=== PATIENT | female | born 1990 | race Caucasian/White ===

== ENCOUNTER 2024-08-24 22:56 | Emergency (ER) | payer BC, SELFPAY ==
--- OUTSIDE RECORDS SUMMARY | 2024-08-24 22:58 | XMS_ITS | Encounter Summary ---
Author Organization [facility] Address [address] [place] [address]. [place] [address] Care Team Providers Care Production Utility Worker Name Role Phone Naz Aguayo MD Unavailable Demario eKe MD Unavailable Tess Williamson MD Primary Care Provider [phone] Demario Kee MD Unavailable Encounter Details Date Type Department Care Team (Late st Contact Info) Description 08/23/2023 MyC Medical Advice Gina HERNANDEZ Epilepsy Care [address] [facility], [address] [place] [address] Anson Renae RN Social History Tobacco Use Types Packs/Day Years Used Date Smoking Tobacco: Former Cigarettes Smokeless Tobacco: Former Quit: 11/2015 Alcohol Use Standard Drinks/Week Comments Not Currently 0 (1 standard drink = 0.6 oz pur e alcohol) occ PHQ-2 Answer Date Recorded PHQ-2 Score 0 12/14/2022 Home Depression Scale Answer Date Recorded Home Depression Score 0 06/13/2020 Last EPDS Self Harm Result Not on file 06/13 Adolescent Education Answer Date Record ed Getting School Help Needed Not on file 11/20 Comments No Sex and Gender Information Value Date Recorded Sex Assigned at Not on file Legal Sex Female 3:38 AM WEED THINNER Gender Identity Not on file Sexual Orientation Not on file documented as of this encounter Plan of Treatment Not on file documented as of this encounter Visit Diagnoses Not on filedocumented in this encounter Additional Health Concerns Assessment Noted Time PHQ-9 Depression Total Score: 3 12/15/19 23 1:19 PM WEED THINNER documented as of this encounter Care Teams Production Utility Worker Relationship Specialty Start Date End Date Tess Williamson MD [facility] [address] [place] [address] PCP - General Family Practice 08/15/19 Naz Aguayo MD [address] [place], [place] [address] Orthopedics 02/26/18 Demario Kee MD [address] [place], [place] [id number] Neurology 02/26/18 Demario Kee MD [address] [facility] [address] [place], [place] [address] Assigned Neuroscience Provider 11/28/19 documented as of this encounter
--- OUTSIDE RECORDS SUMMARY | 2024-08-24 22:58 | XMS_ITS | Encounter Summary ---
Author Organization [facility] Address [address], [place] [address] Care Team Providers Care Yarn Bleaching Machine Operator Name Role Phone Tess Williamson MD Primary Care Provider Reason for Visit * Reason Comments Refill norethindrone, contr aceptive, (MICRONOR) 0.35 MG tablet [Pharmacy Med Name: NORETHINDRONE 0.35MG TABLETS 28S] Encounter Details Date Type Department Care Team (Late st Contact Info) Description 08/02/2024 Refill [facility]SENIOR PRODUCT DESIGNER [address] [address] [place] [address] [address] Refill (norethindrone, contraceptive, (MICRONOR) 0.35 MG tablet [Pharmacy Med Name: NORETHINDRONE 0.35MG TABLETS 28S]) Social History Tobacco Use Types Packs/Day Years Used Date Smoking Tobacco: Former Cigarettes Smokeless Tobacco: Never Alcohol Use Standard Drinks/Week Comments Not Currently 0 (1 standard drink = 0.6 oz pur e alcohol) occasional PHQ-2 Answer Date Recorded PHQ-2 Score 0 02/12/2019 Depression Answer Date Recor ded Last EPDS Total Score 1 03/15/2024 Last EPDS Self Harm Result Not on file 03/15 Comments No Sex and Gender Information Value Date Recorded Sex Assigned at Not on file Legal Sex Female 5:08 AM CDT Gender Identity Not on file Sexual Orientation Not on file Occupation Industry Job Start Date Job End Date [employer] Not on file Not on file Not on file documented as of this encounter Nursing Notes * Sonam Starks MD - 08/07/2024 4:26 PM CDT Patient needs an appointment. Medication not improve. Thanks Dr. Starks * Madelyn Zapata RN - 08/07/2024 3:59 PM CDT Further assistance needed to complete refill request Reason: Pt overdue for qualifying visit. Next Steps: Review pended order for accuracy. Sign. Close encounter. Requested Prescriptions Pending Prescriptions Disp Refills norethindrone, contraceptive, (MICRONOR) 0.35 MG tablet [Pharmacy Med Name: NORETHINDRONE 0.35MG TABLETS 28S] 90 Tablet 0 Sig: TAKE 1 TABLET(0.35 MG) BY MOUTH DAILY LQV 03/16/22. Detailed msg left that she is overdue for a visit. Number given for scheduling. * Radha Matthews RN - 08/05/2024 1:27 PM CDT Requested Prescriptions Pending Prescriptions Disp Refills norethindrone, contraceptive, (MICRONOR) 0.35 MG tablet [Pharmacy Med Name: NORETHINDRONE 0.35MG TABLETS 28S] 90 Tablet 0 Sig: TAKE 1 TABLET(0.35 MG) BY MOUTH DAILY A iWelcome message (the 2nd message) was sent to this patient reminding her to call and schedule herAnnual OBGYN exam which is now due. Asked her to call [phone] to schedule that appt or to call [phone] and choose option 2 ifshe needs to speak to a nurse. When/if this patient calls back, please assist in scheduling her Annual Visit and complete refill, as appropriate. Last Qualifying Visit: 03.16.[address] Starks. No future appointments. * Ofelia Hanks, RN - 08/04/2024 12:29 PM CDT Last QV was 03/16/22; no future appt. Left message for return call to the nurse line. * Raleigh Mcginnisdavidsonjake Xrwcomm - 08/02/2024 8:07 AM CDT norethindrone, contraceptive, (MICRONOR) 0.35 MG tablet [Pharmacy Med Name: NORETHINDRONE 0.35MG TABLETS 28S] Medication started: 08/02/2020 Last ordered by SONAM STARKS R: 11/03/2023 (273 days ago) QTY: 90, Refills: 3, Sig: take 1 tablet(0.35 mg) by mouth daily. (changed but equivalent) -> A qualifying visit was not found within the last 2 years. Last qualifying visit: None Next scheduled visit: None [employer] Embedded Refills, Reference: [id number], 08/02/2024 8:07:43 AM CDT, Pool: MARCO BAKER REFILL ([id number]) documented in this encounter Plan of Treatment Not on file documented as of this encounter Visit Diagnoses Diagnosis Surveillance for control, oral contraceptives Surveillance of previously prescribed contraceptive pill documented in this encounter Care Teams Yarn Bleaching Machine Operator Relationship Specialty [place] [address] [address] [place] [address] PCP - General 09/07/14 documented as of this encounter
--- OUTSIDE RECORDS SUMMARY | 2024-08-24 22:58 | XMS_ITS | Clinical Summary ---
Author Organization [facility] Address [address] [place] [address] Care Team Providers Care Dry Kiln Burner Name Role Phone Tess Williamson MD Primary Care Provider Source Comments You are receiving this document as you are listed as the primary care provider,follow-up provider, or the patient has been referred to you for consultation.This is in compliance with the Medicare and[facility] EHR Incentive Program,which states Providers who transition their patient to another setting of careor provider of care or refers their patient to another provider of care shouldprovide summary care record for each transition of care or referral. [facility] Allergies No known active allergies Medications lamoTRIgine (LAMICTAL) 100 MG tablet Take 1 Tablet by mouth two times a day. 180 Tablet 3 04/24/19 19 Active vitamin-ferrous fumarate-folic acid (PRENATALPLUS) 27-1 MG tablet Take 1 Tablet by mouth daily. Active folic acid 1 MG tablet Take 1 Tablet (1 mg) by mouth daily. Active sertraline (ZOLOFT) 25 MG tablet Take 1 Tablet (25 mg) by mouth daily. Active lamoTRIgine ER 200 MG Take 1 Tablet (200 mg) by mouth. 01/15/20 21 Active magic mouthwash (lido/maalox/diphe n 1:1:1)Indications: Sore throat Swish and spit in mouth two times a day. Swish and spit 5 mL. 240 mL 02/27/19 23 Active Additional Information Patient not taking.Reported on 03/13/2022 sertraline (ZOLOFT) 50 MG tabletIndications: Medication refill Take 1 Tablet (50 mg) by mouth daily. 30 Tablet 02/27/19 23 Active azithromycin (ZITHROMAX) 250 MG tablet Take 2 tablets by mouth on day 1, then take 1 tablet by mouth daily on days 2-5. 6 Tablet 03/13/19 23 Active norethindrone, contraceptive, (MICRONOR) 0.35 MG tabletIndications: Surveillance for control, oral contraceptives Take 1 Tablet (0.35 mg) by mouth daily. 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 The program provides patients with support, education, referrals and resources during their . Reason for enrollment: Connection to resources, history of PP depression For more information, please contact Amy Winters, [facility] Specialist, at [phone]. Maternal mental disorder, antepartum 11/15/2019 08/02/2020 Poor growth affecting management of mother, antepartum 04/06/2016 04/23/2018 Abnormal umbilical cord 12/28/201504/05 Echogenic intracardiac focus of fetus on ultrasound 12/28/2015 04/23/2018 Rubella non-immune status, antepartum 10/19/2015 04/22/2020 Tobacco user 10/18/2015 04/24/2018 , supervision, normal, first 12/04/2013 04/24/2018 Epilepsy 12/04/2013 08/02/2020 Varicella 10/15/2003 12/15/2003 Overview (09/27/2016): LW Onset: 1993 ; Varicella Zoster Encounters Date Type Department Care Team Description 08/05/2024 [facility] [address] [place] [address] Brock, Leah Provider 08/02/2024 Refill [facility]-ORTHOPEDIC NURSE PRACTITIONER [address] [facility], [address] [place] [address] Sonam Starks MD Refill (norethindrone, contraceptive, (MICRONOR) 0.35 MG tablet [Pharmacy Med Name: NORETHINDRONE 0.35MG TABLETS 28S]) from Last 3 Months Immunizations Immunization Administration Dates Next Due 4vHPV (Gardasil) 03/30/2008 9vHPV (Gardasil 9) 03/30/2008 DTP 09/27/1995, 3,1991,1991,1991 HepB Adult (Engerix-B, 20+ y rs, 3 dose series) 03/25/2020,12/12/2019 HepB Ped/Adol (0-18 yrs) 10/21/2001,09/12/2001 HepB, Unspecified Formulation 11/11/2001, 002 MMR 04/24/2018, 7,10/15/2003,1992 Polio, Unspecified Formulation 6,1991,1991,1991 Td 10/15/2003 Tdap 04/22/2020,03/16/2016,11/23/2013 Family History Medical History Relation Name Comments Depression Mother Anesthesia Reaction Negative Family History Relation Name Status Comments Father Alive Mother Alive Brother Alive Maternal Grandfather Maternal Grandmother Paternal Grandfather Paternal Grandmother Social History Tobacco Use Types Packs/Day Years [...] file Not on file Not on file Last Filed Vital Signs Vital Sign Reading Time Taken Comments Blood Pressure 98/64 03/16/2022 11:30 AM UTILITY SYSTEMS REPAIRER OPERATOR Pulse 84 03/16/2022 11:30 AM UTILITY SYSTEMS REPAIRER OPERATOR Temperature 36.7 C (98 F) 03/13/2022 2:07 PM UTILITY SYSTEMS REPAIRER OPERATOR Respiratory Rate 16 03/13/2022 2:07 PM UTILITY SYSTEMS REPAIRER OPERATOR Oxygen Saturation 98% 03/13/2022 2:07 PM UTILITY SYSTEMS REPAIRER OPERATOR Inhaled Oxygen Concentration - - Weight 71.7 kg (158 lb) 03/16/2022 11:30 AM UTILITY SYSTEMS REPAIRER OPERATOR Height 165.1 cm (5' 5) 03/16/2022 11:30 AM UTILITY SYSTEMS REPAIRER OPERATOR Body Mass Index 26.29 03/16/2022 11:30 AM UTILITY SYSTEMS REPAIRER OPERATOR Plan of Treatment Health Maintenance Due Date Last Done Comments HPV Vaccine (2 - 3-dose series) 04/27/2008 03/30/2008, 03/30/2008 COVID-19 Vaccine ( season) 2023 Adult Preventive Visit 03/16/2024 03/16/2022 Influenza Vaccine (#1) 2024 Cervical Cancer Screening 03/16/20272022, 03/16/2022, 11/14/2019, Additional history exists DTaP/Tdap/Td Vaccine (9 - Tdap) 04/22/2030 04/22/2020, 03/16/2016, 11/23/2013, Additional history exists Zoster/Shingles Vaccine (1 of 2) 2041 IPV (Polio) Vaccine Completed 09/27/1995, 1991, 1991, Additional history exists MMR Vaccine Completed 04/24/2018, 040 08/2016, 10/15/2003, Additional history exists HepB Vaccine Completed 03/25/2020, 11/0 07/2019, 11/11/2001, Additional history exists HIV Screening (Preventive Services) Completed 03/16/2022, 11/14/2019, 10/18/2015, Additional history exists Hep C Screening (Preventive Services) Completed 03/16/2022, 03/25/2020 HepA Vaccine Aged Out No longer eligi ble based on patient's age to complete this topic Hib Vaccine Aged Out No longer eligi ble based on patient's age to complete this topic MCV4 Vaccine Aged Out No longer eligi ble based on patient's age to complete this topic Meningococcal B Vaccine Aged Out No l onger eligible based on patient's age to complete this topic Pneumococcal Vaccine Aged Out No long er eligible based on patient's age to complete this topic Procedures Procedure Name Priority Date/Time Associated Diagnosis Comments CYTOLOGY (PAP) Routine 03/16/2022 3:38 PM UTILITY SYSTEMS REPAIRER OPERATOR Screening for malignant neoplasm of cervix HIV 1/2 AG/AB 4TH GEN Routine 03/16/2022 12:27 PM UTILITY SYSTEMS REPAIRER OPERATOR Screening examination for venereal disease HEPATITIS C ANTIBODY, WITH REFLEX (ANTI-HCV) Routine 03/16/2022 12:27 PM UTILITY SYSTEMS REPAIRER OPERATOR Special screening examination for viral disease from Last 3 Months or Most Recently Relevant to Health Maintenance Results * PAP Test (03/16/2022 3:38 PM UTILITY SYSTEMS REPAIRER OPERATOR) Case Report Pap Case: [id number] Authorizing Provider: Sonam Cramer MD Collected: 03/16/2022 1538 Ordering Location: [facility] Received: 03/16/2022 1559 Services-ORTHOPEDIC NURSE PRACTITIONER First Screen: May Blood Specimen: Pap Test, Routine, Cervix/Endocervix 04/06/2022 1:56 PM UTILITY SYSTEMS REPAIRER OPERATOR [facility] Pap Specimen Adequacy Satisfactory for evaluation, endocervical/pisano sformation zone component present. 04/06/2022 1:56 PM UTILITY SYSTEMS REPAIRER OPERATOR [facility] Pap Interpretation (NILM) Negative for intraepithelial lesion or malignancy. 04/06/2022 1:56 PM UTILITY SYSTEMS REPAIRER OPERATOR [facility] at 1356 UTILITY SYSTEMS REPAIRER OPERATOR Pap Disclaimer The Pap test is a screening test designed to aid in the detection of cervical cancer and its precursor lesions. It is not a diagnostic procedure and should not be used as the sole means of detecting cervical cancer. Both false-positive and false-negative results may occur. 04/06/2022 1:56 PM UTILITY SYSTEMS REPAIRER OPERATOR [facility] Gross Description The specimen is received in SurePath fixative and properly labeled. 1 Pap-stained SurePath slide is prepared. 04/06/2022 1:56 PM UTILITY SYSTEMS REPAIRER OPERATOR [facility] Embedded Images 1:56 PM UTILITY SYSTEMS REPAIRER OPERATOR [facility] Other Specimen Type ENTIRE ENDOCERVIX / Unknown 03/16/2022 3:38 PM UTILITY SYSTEMS REPAIRER OPERATOR 03/16/2022 3:59 PM UTILITY SYSTEMS REPAIRER OPERATOR Comment:LMP: Patient's last menstrual period was 02/19/2022. Sonam Starks MD LAB PATHOLOGY Final Result Performing Organization Address City/[facility]/ZIP Co de Phone Number [facility] [address] [place] [address] * HIV 1/2 Ag/Ab 4th Generation (03/16/2022 12:27 PM UTILITY SYSTEMS REPAIRER OPERATOR) HIV 1/2 Antigen/Antib shante (4th generation) Negative (Non Reactive) Negative (Non Reactive) 03/16/2022 7:08 PM UTILITY SYSTEMS REPAIRER OPERATOR [facility] Comment:HIV-1 p24 Antigen an d HIV-1/HIV-2 Antibody not detected Blood Venipuncture / Unknown 03/16/2022 12:27 PM UTILITY SYSTEMS REPAIRER OPERATOR 03/16/2022 12:34 PM UTILITY SYSTEMS REPAIRER OPERATOR Sonam Starks MD LAB_1 Final Result Performing Organization Address City/[facility] Co de Phone Number [facility] [address] * HEPATITIS C ANTIBODY, WITH REFLEX (03/16/2022 12:27 PM UTILITY SYSTEMS REPAIRER OPERATOR) Hepatitis C Antibody Negative (Non Reactive) Negative (Non Reactive) 03/16/2022 7:08 PM UTILITY SYSTEMS REPAIRER OPERATOR [facility] Comment:Antibodies to HCV no t detected. Does not exclude the possiblity of exposure to HCV. Blood Venipuncture / Unknown 03/16/2022 12:27 PM UTILITY SYSTEMS REPAIRER OPERATOR 03/16/2022 12:34 PM UTILITY SYSTEMS REPAIRER OPERATOR us Sonam Starks MD LAB_1 Final Result [facility] [address] from Last 3 Months or Most Recently Relevant to Health Maintenance Insurance [facility] Care Teams Dry Kiln Burner Relationship Specialty [place] [address] [address] [place] [address] PCP - General 09/07/14
--- OUTSIDE RECORDS SUMMARY | 2024-08-24 22:58 | XMS_ITS | Encounter Summary ---
Author Organization [facility] Address [address] [place] [address]. [place] [address] Care Team Providers Care Call Center Support Representative Name Role Phone Naz Aguayo MD Unavailable [phone] Demario Kee MD Unavailable Tess Williamson MD Primary Care Provider [phone] Demario Kee MD Unavailable Naz Aguayo MD Unavailable [phone] Encounter Details Date Type Department Care Team (Late st Contact Info) Description 04/16/2021 [facility] [address] [place] [address] [facility] Social History Tobacco Use Types Packs/Day Years Used Date Smoking Tobacco: Former Cigarettes Smokeless Tobacco: Former Quit: 11/2015 Alcohol Use Standard Drinks/Week Comments Not Currently 0 (1 standard drink = 0.6 oz pur e alcohol) occ PHQ-2 Answer Date Recorded PHQ-2 Score 0 12/22/2020 [place] Depression Scale Answer Date Recorded [place] Depression Score 0 06/13/2020 Last EPDS Self Harm Result Not on file 06/13 Comments No Sex and Gender Information Value Date Recorded Sex Assigned at Not on file Legal Sex Female 3:38 AM SENIOR CLINICAL DATA COORDINATOR Gender Identity Not on file Sexual Orientation Not on file documented as of this encounter Plan of Treatment Not on file documented as of this encounter Visit Diagnoses Not on filedocumented in this encounter Additional Health Concerns Assessment Noted Time PHQ-9 Depression Total Score: 3 10/27/19 20 2:17 PM CDT documented as of this encounter Care Teams Call Center Support Representative Relationship Specialty Start Date End Date Tess Williamson MD [facility] [address] [facility] [place] [address] PCP - General Family Practice 08/15/19 Naz Aguayo MD [address] [place], [place] [id number] [place] [address] Orthopedics 02/26/18 Demario Kee MD [address] [place], [place] [address] Neurology 02/26/18 Demario Kee MD [address] [facility] [address] [place], [place] [address] Assigned Neuroscience Provider 11/28/19 Naz Aguayo MD [address] [place], [place] [address] [place] [address] Assigned Musculoskeletal Provider 01/02/21 06/30/22 documented as of this encounter
--- OUTSIDE RECORDS SUMMARY | 2024-08-24 22:58 | XMS_ITS | Encounter Summary ---
Author Organization [facility] Address [address] [place] [address]. [place] [address] Care Team Providers Care Recreation Clerk Name Role Phone Naz Aguayo MD Unavailable [phone] Demario Kee MD Unavailable Tess Williamson MD Primary Care Provider [phone] Demario Kee MD Unavailable Encounter Details Date Type Department Care Team (Late st Contact Info) Description 12/14/2023 [facility] [place] [place] Medical Advice [address] [address] Yamila Rios, RN Social History Tobacco Use Types Packs/Day Years Used Date Smoking Tobacco: Former Cigarettes Smokeless Tobacco: Former Quit: 11/2015 Alcohol Use Standard Drinks/Week Comments Not Currently 0 (1 standard drink = 0.6 oz pur e alcohol) occ PHQ-2 Answer Date Recorded PHQ-2 Score 0 12/14/2022 [place] Depression Scale Answer Date Recorded [place] Depression Score 0 06/13/2020 Last EPDS Self Harm Result Not on file 06/13 Adolescent Education Answer Date Record ed Getting School Help Needed Not on file 11/20 Comments No Sex and Gender Information Value Date Recorded Sex Assigned at Not on file Legal Sex Female 3:38 AM SNACK FOODS MIXER OPERATOR Gender Identity Not on file Sexual Orientation Not on file documented as of this encounter Plan of Treatment Not on file documented as of this encounter Visit Diagnoses Not on filedocumented in this encounter Additional Health Concerns Assessment Noted Time PHQ-9 Depression Total Score: 3 12/15/19 23 1:19 PM SNACK FOODS MIXER OPERATOR documented as of this encounter Care Teams Recreation Clerk Relationship Specialty Start Date End Date Tess Williamson MD [facility] [place] [address] [place] [address] PCP - General Family Practice 08/15/19 Naz Aguayo MD [address] [place], [place] [address] Orthopedics 02/26/18 Demario Kee MD [address] [place], [place] [address] Neurology 02/26/18 Demario Kee MD [address] [place] [address] [address] [place], [place] [address] Assigned Neuroscience Provider 11/28/19 documented as of this encounter
--- OUTSIDE RECORDS SUMMARY | 2024-08-24 22:58 | XMS_ITS | Encounter Summary ---
Author Organization [facility] Address [address] [place] [address] Care Team Providers Care Insurance Producer Name Role Phone Tess Williamson MD Primary Care Provider Encounter Details Date Type Department Care Team (Late st Contact Info) Description 08/05/2024 [facility] [address] [facility] [place] [address] Mychart, [place] [address] Social History Tobacco Use Types Packs/Day Years [...] Diagnoses Not on filedocumented in this encounter Care Teams Insurance Producer Relationship Specialty [place] [address] [place] [address] PCP - General 09/07/14 documented as of this encounter
--- OUTSIDE RECORDS SUMMARY | 2024-08-24 22:59 | XMS_ITS | Encounter Summary ---
Author Organization [facility] Address [address] [place] [address]. [place] [address] Care Team Providers Care Concrete Saw Operator Name Role Phone Naz Aguayo MD Unavailable [phone] Demario Kee MD Unavailable Tess Williamson MD Primary Care Provider [phone] Anson Renae RN Unavailable Demario Kee MD Unavailable Naz Aguayo MD Unavailable [phone] Naz Aguayo MD Unavailable [phone] Encounter Details Date Type Department Care Team (Late st Contact Info) Description 02/18/2020 [facility] [place] Niranjan HERNANDEZ Epilepsy Care [address] [facility], [address] [place] [address] Anson Renae, RN Social History Tobacco Use Types Packs/Day Years Used Date Smoking Tobacco: Former Cigarettes Smokeless Tobacco: Former Quit: 11/2015 Alcohol Use Standard Drinks/Week Comments Yes 0 (1 standard drink = 0.6 oz pur e alcohol) occ PHQ-2 Answer Date Recorded PHQ-2 Score 0 12/22/2019 Comments Yes Sex and Gender Information Value Date Recorded Sex Assigned at Not on file Legal Sex Female 3:38 AM ENGINEERING DIRECTOR Gender Identity Not on file Sexual Orientation Not on file documented as of this encounter Plan of Treatment Not on file documented as of this encounter Visit Diagnoses Not on filedocumented in this encounter Additional Health Concerns Assessment Noted Time PHQ-9 Depression Total Score: 3 10/27/19 20 2:17 PM CDT documented as of this encounter Care Teams Concrete Saw Operator Relationship Specialty Start Date End Date Tess Williamson MD [facility] [address] [place] [address] PCP - General Family Practice 08/15/19 Naz Aguayo MD [address] [place] [address] Orthopedics 02/26/18 Demario Kee MD [address] [place] [address] Neurology 02/26/18 Anson Renae, RN Specialty Thread Singer Neurology 10/30/19 Demario Kee MD [address] [facility] [address] [place] [address] Assigned Neuroscience Provider 11/28/19 Naz Aguayo MD [address] [place] [address] Assigned Musculoskeletal Provider 11/28/19 02/21/20 Naz Aguayo MD [address] [place] [address] Assigned Musculoskeletal Provider 01/02/21 06/30/22 documented as of this encounter
--- OUTSIDE RECORDS SUMMARY | 2024-08-24 22:59 | XMS_ITS | Clinical Summary ---
Author Organization [employer] Address [address] [place] [address] Care Team Providers Care Ovens Supervisor Name Role Phone Pcp, No Primary Care Provider Unavailabl e Allergies No known active allergies Medications lamoTRIgine (LAMICTAL) 150 mg tablet Take 1 tablet by mouth once daily. 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 Gender Identity Not on file Sexual Orientation Not on file Obstetrics History Last Filed Vital Signs Vital Sign Reading Time Taken Comments Blood Pressure 103/48 06/10/2015 1:00 PM CDT Pulse 78 06/10/2015 1:00 PM CDT Temperature 36.8 C (98.2 F) 06/10/2015 11:39 AM CDT Respiratory Rate 16 06/10/2015 1:00 PM CDT Oxygen Saturation 99% 06/10/2015 1:00 PM CDT Inhaled Oxygen Concentration - - Weight 56.7 kg (125 lb) 06/10/2015 11:39 AM CDT Height 165.1 cm (5' 5) 06/10/2015 11:39 AM CDT Body Mass Index 20.8 06/10/2015 11:39 AM CDT Plan of Treatment Health Maintenance Due Date Last Done Comments Depression screening for age 12+ 2003 HIV for age 15-65 2006 Hepatitis C screening for ag e 18-79 2009 Hepatitis B series for 19+ ( 1 of 3 - 19+ 3-dose series) 2010 Pap test for age 21-65 02/27/2012 Tetanus booster 10/14/2013 10/15/2003 BMI (ht and wt on same day) for age 18+ 06/09/2016 06/10/2015 COVID-19 vaccine series ( - 2023- season) 2023 Influenza Vaccine (#1) 2024 Pneumococcal series for age 6-49 Aged Out No longer eligible based on patient's age to complete this topic [place] Care Teams Ovens Supervisor Relationship Specialty Start Date End Date Pcp, No . PCP - General 09/23/10
--- OUTSIDE RECORDS SUMMARY | 2024-08-24 22:59 | XMS_ITS | Clinical Summary ---
Author Organization [facility] Address [address] [place] [address] Care Team Providers Care Jet Pilot Name Role Phone Naz Aguayo MD Unavailable [phone] Demario Kee MD Unavailable Tess Williamson MD Primary Care Provider [phone] Demario Kee MD Unavailable Allergies No known active allergies Medications hydrOXYzine (ATARAX) 25 MG tablet TAKE 1/2 TO 1 TABLET BY MOUTH EVERY 8 HOURS NEEDED FOR ANXIETY 08/13/2020 Active norethindrone (MICRONOR) 0.35 MG tablet Take 1 tablet by mouth daily 08/02/2020 Active sertraline (ZOLOFT) 50 MG tablet Take 50 mg by mouth 2 times daily 02/27/2022 Active lamoTRIgine (LAMICTAL) 150 MG tabletIndicatio ns:Recurrent seizures (H) Take 1 tablet (150 mg) by mouth 2 times daily. 180 tablet 3 04/17/2024 Active folic acid (FOLVITE) 1 MG tabletIndicatio ns:Recurrent seizures (H) Take 2 tablets (2 mg) by mouth daily. 180 tablet 3 04/17/2024 Active Active Problems Patient Care Coordination No te Formatting of this note migh t be different from the original. OB at [facility], . Labs drawn at [facility] fax [phone], Lab service center phone number [phone], Fax for primary care is [phone] goal DAVIS >2.5 Problem Noted Date Diagnosed Date Encounter for triage in patient 021 Indication for care in labor or delivery 017 Labor and delivery, indication for care 05/11/19 17 Missed 09/22/2014 Depression 11/23/2013 Seizures 04/14/2009 Resolved Problems Problem Noted Date Diagnosed Date Resolved Date Aftercare following surgery of the musculoskeletal system 10/16/2018 12/04/2018 Right shoulder pain 06/07/2018 12/05/19 19 Recurrent dislocation of right shoulder 06/07/2018 12/04/2018 Immunizations Immunization Administration Dates Next Due HPV 03/30/2008 HPV Quadrivalent 03/30/2008 HepB, Unspecified 11/11/2001,09/12/2001 Hepatitis B, Adult (Energix-B/Recombivax HB) 12/12/2019 Hepatitis B, Peds (Engerix-B/Recombivax HB) 11/11/2001 Historical DTP/aP 09/27/1995, 3,1991,1991,1991 MMR (MMRII) 04/24/2018, 7,10/15/2003,1992 Polio, Unspecified 09/27/1995, 2,1991,1991 TDAP Vaccine (Adacel) 03/16/2016,11/23/2013 Td (Adult), Adsorbed 10/15/2003 Social History Tobacco Use Types Packs/Day Years Used Date Smoking Tobacco: Former Cigarettes Smokeless Tobacco: Former Quit: 11/2015 Alcohol Use Standard Drinks/Week Comments Not Currently 0 (1 standard drink = 0.6 oz pur e alcohol) occ PHQ-2 Answer Date Recorded PHQ-2 Score 0 04/17/2024 [place] Depression Scale Answer Date Recorded [place] Depression Score 0 06/13/2020 Last EPDS Self Harm Result Not on file 06/13 Adolescent Education Answer Date Record ed Getting School Help Needed Not on file 11/20 Comments No Sex and Gender Information Value Date Recorded Sex Assigned at Not on file 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 Gender Identity Not on file Sexual Orientation Not on file Last Filed Vital Signs Vital Sign Reading Time Taken Comments Blood Pressure 122/78 06/15/2022 3:07 PM CDT Pulse 78 06/15/2022 3:07 PM CDT Temperature 36.1 C (97 F) 06/15/2022 3:07 PM CDT Respiratory Rate 16 12/08/2020 4:26 PM CDT Oxygen Saturation 100% 12/08/2020 4:26 PM CDT Inhaled Oxygen Concentration - - Weight 74.8 kg (165 lb) 12/14/2022 1:17 PM BOAT JOINER HELPER Height 165.1 cm (5' 5) 12/14/2022 1:17 PM BOAT JOINER HELPER Body Mass Index 27.46 12/14/2022 1:17 PM BOAT JOINER HELPER Plan of Treatment Health Maintenance Due Date Last Done Comments ADVANCE CARE PLANNING 1991 ANNUAL REVIEW OF HM ORDERS 1991 HPV VACCINE (2 - 3-dose series) 04/27/2008 03/30/2008, 03/30/2008 YEARLY PREVENTIVE VISIT 03/16/2023 03/16/19, 04/16/2008, 03/30/2008 COVID-19 VACCINE ( season) 2023 INFLUENZA VACCINE (#1) 2024 PAP 03/16/2025 03/16/2022, 10/2019, 04/16/2008 DTAP/TDAP/TD VACCINE (9 - Td or Tdap) 04/22/2030 04/22/2020, 03/16/2016, 11/23/2013, Additional history exists ZOSTER VACCINE (1 of 2) 2041 HEPATITIS B VACCINE Completed 03/25/2020, 12/12/2019, 11/11/2001, Additional history exists HEPATITIS C SCREENING Completed 03/16/2022, 021 HIV SCREENING Completed 03/16/2022, 10/2019, 11/14/2019, Additional history exists PHQ-2 (once per calendar year) Completed 04/17/2024, 12/14/2022, 12/14/2022, Additional history exists MENINGITIS VACCINE Aged Out No longer eligible based on patient's age to complete this topic PNEUMOCOCCAL VACCINE: PEDIATRICS (0 to 5 YEARS) AND AT-RISK PATIENTS (6 to 49 YEARS) Aged Out No longer eligible based on patient's age to complete this topic Medical Devices Implanted Type Area Journalists [employer] Other Writers Device Identifier Shelf Expiration Date Model / Serial / Lot Imp Scr Arthrex 2.4mm Biocomposite Suturetak [id number] Implanted:Qty: 4 on 05/14/2018 by Naz Aguayo MD at [facility] [employer] Hardware/An chor Right: Shoulder ARTHREX 02/05/2020 [id number] / / [id number] Procedures Procedure Name Priority Date/Time Associated Diagnosis Comments HIV ANTIGEN ANTIBODY COMBO Routine 11/14/2019 HCL PAP THIN LAYER SCREEN Routine 04/16/2008 12:00 AM CDT Routine Gynecological Examination from Last 3 Months or Most Recently Relevant to Health Maintenance Results * HIV Antigen Antibody Combo (11/14/2019) HIV Antigen Antibody Combo non-reacti ve Blood us Patient Reported LAB - BLOOD ORDERABLES Final Re sult * A THIN LAYER PAP SCREEN (04/16/2008 12:00 AM CDT) PAP [facility] Report Patient Name: KIRIT CRYSTAL MR#: [id number] Specimen #: [id number] Collected: 04/16/2008 Received: 04/17/2008 Reported: 04/20/2008 14:04 Ordering Phy(s): MEJIA PEREZ SPECIMEN/STAIN PROCESS: Pap thin layer prep screening ([facility]) Pap-Cyto x 1, Reflex HPV x 1 SOURCE: Cervical, endocervical Pap thin layer prep screening ([facility]) SPECIMEN ADEQUACY: Satisfactory for evaluation. -Transformation zone component present. CYTOLOGIC INTERPRETATION: Negative for Intraepithelial Lesion or Malignancy Electronically signed out by: ROMY Anguiano (ASCP) Processed and screened at [facility] CLINICAL HISTORY: LMP: 03/30/08 TESTING LAB LOCATION: [facility] [address] [place] [id number] COLLECTION SITE: [facility] Location: [facility] (R) COPATH 04/16/2008 04/17/2008 3:0 3 PM CDT us Mejia Hickman PA-C LABORATORY Ayana l Result COPATH from Last 3 Months or Most Recently Relevant to Health Maintenance Insurance [facility] Advance Directives For more information, please contact: [phone] * Full Code During Procedure (Latest Code Status on File) Date Activated Date Inactivated Comments 11/23/2013 11:59 AM 11/26/2013 9:25 PM Care Teams Jet Pilot Relationship Specialty Start Date End Date Tess Williamson MD [facility] [address] [place] [address] PCP - General Family Practice 08/15/19 Naz Aguayo MD [address] [place] [address] [address] [place], [place] [address] Orthopedics 02/26/18 Demario Kee MD [address] [place], [place] [address] Neurology 02/26/18 Demario Kee MD [address] [place] [address] Assigned Neuroscience Provider 11/28/19
[2024-08-24 23:03] VITALS: BP 122/79; PULSE 90; RESP 18; TEMP 36.3; O2SAT 98
--- NOTE | 2024-08-24 23:38 | ED.UPPEXIN ---
HPI - Extremity Injury (Upper) General Date Seen: 08/24/24 Chief Complaint: Extremity Pain/Injury, Upper Stated Complaint: Left index finger laceration Time Seen by Provider: 08/24/24 23:08 Source: patient Mode of arrival: ambulatory Limitations: no limitations History of Present Illness HPI narrative: Patient is a 34-year-old female presenting to the emergency department for laceration to her left index finger. She was cutting some meat when the knife slipped and cut her finger. Laceration is just proximal to the nail bed and wraps around to the lateral aspect of the finger. Does not cross the joint line. About 1 cm in length. Last tetanus was 2013. No other concerns noted at this time. Related Data Allergies Allergy/AdvReac Type Severity Reaction Status Date / Time No Known Drug Allergies Allergy Verified 08/24/24 23:07 Review of Systems Narrative: Pertinent systems reviewed and were negative unless stated in HPI Exam Narrative: Exam Narrative: Const: Well-nourished, Well-developed, in no distress Eyes: PERRL, no conjunctival injection, and symmetrical lids HENT: Atraumatic external nose and ears. Moist mucous membranes. MSK:Extremities w/o deformity, Normal Active ROM Skin: Warm, Dry. 1 cm laceration to left index finger just proximal to the nail bed and wrapping around to the lateral aspect of the finger Neuro: Normal Muscle tone, No focal neurological deficits. Psych: Awake, Alert, & Oriented x3. Appropriate mood and affect. Const: Vital Signs, click to edit/add: Vital Signs - 24 hr 08/24/24 23:03 Temperature 97.4 F L Pulse Rate [Right Pulse Oximeter] 90 Respiratory Rate 18 Blood Pressure [Ri ght Upper Arm] 122/79 Pulse Oximetry 98 Oxygen Delivery Me thod Room Air Course Vital Signs Vital signs: Initial Vital Signs Temperature 97.4 F L 08/24/24 23:03 Temperature Source Temporal Artery Scan 08/24/24 23:03 Pulse Rate 90 08/24/24 23:03 Pulse Rhythm Regular 08/24/24 23:03 Pulse Strength 3+ Normal 08/24/24 23:03 Respiratory Rate 18 08/24/24 23:03 Blood Pressure 122/79 08/24/24 23:03 Blood Pressure Mean 93 08/24/24 23:03 Blood Pressure Position Supine 08/24/24 23:03 Pulse Oximetry 98 08/24/24 23:03 Oxygen Delivery Method Room Air 08/24/24 23:03 Vital Signs Temperature 97.4 F L 08/24/24 23:03 Pulse Rate 90 08/24/24 23:03 Respiratory Rate 18 08/24/24 23:03 Blood Pressure 122/79 08/24/24 23:03 Pulse Oximetry 98 08/24/24 23:03 Oxygen Delivery Method Room Air 08/24/24 23:03 Temperature 97.4 F L 08/24/24 23:03 Pulse Rate 90 08/24/24 23:03 Respiratory Rate 18 08/24/24 23:03 Blood Pressure 122/79 08/24/24 23:03 Pulse Oximetry 98 08/24/24 23:03 Oxygen Delivery Method Room Air 08/24/24 23:03 MDM - Extremity Injury (Upper) MDM Narrative Medical decision making narrative: Patient is a 34-year-old female presenting for laceration. Did put 2 sutures in. She tolerated the procedure well. Tdap was updated. Do not believe antibiotics are necessary at this time. Wound was irrigated prior to the suture placement. She is doing well and will be discharged. Discharge Plan Discharge Clinical Impression: Laceration of finger of left hand Qualifiers: Encounter type: initial encounter Finger: middle finger Damage to nail status: without damage Foreign body presence: without foreign body Qualified Code(s): S61.213A - Laceration without foreign body of left middle finger without damage to nail, initial encounter Patient Disposition: Home, Self-Care Condition: Stable Instructions: Finger Laceration (ED) Additional Instructions: Follow-up with your primary care provider or urgent care in the next 7 days to have the 2 sutures removed. For next 6 months, once sutures are removed, whenever you go outside put a dab of sunscreen over the laceration site to improve scar appearance. Topical antibiotics are not necessary at this time. Patient can shower but do not submerge the laceration until sutures are removed Follow Up/Referrals: Provider,Not a Local [Primary Care Provider, Family Practice] Stand Alone Forms: MyHealth Info Instructions Procedures Laceration Index finger: Name of person performing procedure: Gamal Turcios Site: hand (Index finger) Side (If applicable): left Size (cm): 1 Description: linear and clean Depth: simple, single layer Local Anesthetic: lidocaine 1% (Digital nerve block) Amount of anesthesia used (mL): 4 Pre-repair: wound explored, irrigated extensively and deep structures intact Skin layer closed with: nylon Size (cm): 5-0 Number of sutures: 2 Technique: simple, interrupted
[2024-08-24] MEDS: TETANUS/DIPHTH/PERTUSSIS 0.5 ML SYRINGE IM (23:52)
[2024-08-25] MEDS: LIDOCAINE 1%-EPI 1:100,000 4 ML INFILTRATI (00:09)
== END 2024-08-25 00:19 | disposition home or self-care (01) ==
PROVIDERS: Emergency Provider Student in an Organized Health Care Education/Training Program
DX: S61.211A Laceration without foreign body of left index finger without damage to nail, initial encounter (principal); W26.0XXA Contact with knife, initial encounter; Z23 Encounter for immunization
CPT/HCPCS: 12001; 90471; 90715; 99283